=== PATIENT | female | born 1945 ===

== ENCOUNTER → 2019-08-09 11:47 | Outpatient (REF) | payer MEDICARE, SELFPAY ==
[2019-08-09 14:56] LABS: Hemoglobin A1C 8.4 % (0.0-7.0)
== END ==
LOC: LAB.DROPOF 11:47
PROVIDERS: Visit Provider Podiatrist Foot & Ankle Surgery
DX: E11.40 Type 2 diabetes mellitus with diabetic neuropathy, unspecified (principal)
CPT/HCPCS: 83036